=== PATIENT | female | born 1980 ===

== ENCOUNTER 2024-04-22 11:47 | Outpatient (CLI) | payer OTHER ==
[~2024-04-22 11:47] MED LIST: ALDOMET250 MG PO; DIABETA2.5 MG PO; PRENATAL1 TAB PO
== END 2024-04-22 12:00 | disposition home or self-care (01) ==
LOC: MAMO-SONO 11:47
DX: Z12.39 Encounter for other screening for malignant neoplasm of breast (principal); Z12.31 Encounter for screening mammogram for malignant neoplasm of breast